=== PATIENT | male | born 1955 | race Caucasian/White ===

== ENCOUNTER 2017-01-13 07:45 | Day surgery (SDC) | payer BC ==
[2017-01-10 07:26] LABS: HEMOGLOBIN 15.1 g/dL (13.6-17.8)
[2017-01-10 07:42] LABS: A/G RATIO 1.4 (0.7-1.9); ALKALINE PHOSPHATASE 44 U/L (45-117); BUN (BLOOD UREA NITROGEN) 17 MG/DL (6-23); CALCIUM, SERUM 8.9 MG/DL (8.5-10.4); CHLORIDE, SERUM 110 MMOL/L (96-112); CO2 (CARBON DIOXIDE) 27 MMOL/L (24-34); CREATININE 1.38 MG/DL (0.70-1.30); GFR AFRICAN AMERICAN 63 ML/MIN (>=60); GFR NON AFRICAN AMERICAN 54 ML/MIN (>=60); GLOBULIN 2.9 G/DL (2.5-4.1); GLUCOSE, SERUM 94 MG/DL (60-99); POTASSIUM, SERUM 4.3 MMOL/L (3.5-5.3); SGOT(AST) 19 U/L (5-40); SGPT(ALT) 30 U/L (5-65); SODIUM, SERUM 145 MMOL/L (135-148); TOTAL BILIRUBIN 0.3 MG/DL (0-1.2); TOTAL PROTEIN 6.9 G/DL (6.0-8.5)
--- NOTE | ~2017-01-13 | OP ---
Record Of Operation [facility] [address] [place]. [address] NAME: LING BROWN : 51 STATUS : REG [facility] – [place] PAT#: [id number] AGE: 61 ADM/REG DATE : 01/13/17 MR#: [id number] REPORT SERV DATE: 01/13/17 DICTATED BY: CRUZ SILVA DATE: 01/13/17 REPORT STATUS : Draft TRANSCRIBED BY: MODL DATE: 01/13/17 DATE OF PROCEDURE: 01/13/2017 PREOPERATIVE DIAGNOSIS: Incarcerated umbilical hernia. POSTOPERATIVE DIAGNOSIS: Incarcerated umbilical hernia. PROCEDURE: Reduction and mesh patch repair of incarcerated umbilical hernia. SURGEON: Cruz Silva M.D. DESCRIPTION OF OPERATIVE PROCEDURE: The patient was brought to the operating suite, placed in supine position, underwent satisfactory general endotracheal anesthesia without incident. The skin of the abdomen was scrubbed, prepped, and draped in usual sterile fashion. 0.5% Marcaine with epinephrine was utilized as supplemental local anesthesia. Initially, a curvilinear infraumbilical incision was performed dissecting through the skin and subcutaneous tissue. The umbilical skin was elevated off the incarcerated hernia sac which consisted of the mesothelial membrane as well as a preperitoneal fat, this was excised leaving about a 1 cm defect. A PVPM bicomponent mesh patch was chosen. It was placed in local anesthesia, rolled up, and placed into the peritoneal cavity, this allowed to expand the midline fascia. Three separately placed sutures of 0 Ethibond in a "[id number]" interrupted vertical mattress fashion were utilized incorporating the two suturing tails of the mesh which were trimmed, these were tied down, and then the subcutaneous tissue was closed with interrupted 3-0 Vicryl, and redundant thinned out umbilical skin was trimmed and closed with running subcuticular stitch 4-0 Vicryl. Dermabond and skin adhesive were placed. The patient tolerated the procedure well. He was returned to PACU in stable condition. At the termination of the procedure sponge, needle, lap, and instrument counts were correct x3. ESTIMATED BLOOD LOSS: Negligible. WR/COTYL Cruz Silva M.D. / [id number] CC: Cruz Silva M.D. Record Of Operation [address] [address] NAME: LING BROWN : 51 STATUS : REG [facility] – [place] PAT#: [id number] AGE: 61 ADM/REG DATE : 01/13/17 MR#: [id number] REPORT SERV DATE: 01/13/17 DICTATED BY: CRUZ SILVA DATE: 01/13/17 REPORT STATUS : Draft TRANSCRIBED BY: SHORTY DATE: 01/13/17 Apollo Guevara M.D.
[~2017-01-13 07:45] MED LIST: BABY ASPIRIN
== END 2017-01-13 23:59 | disposition home or self-care (01) ==
LOC: MSC 07:45
PROVIDERS: Specialist
PROC: 0WUF0JZ Supplement Abdominal Wall with Synthetic Substitute, Open Approach (ICD-10-PCS; principal; 2017-01-13 09:15)
DX: K42.0 Umbilical hernia with obstruction, without gangrene (principal); E78.00 Pure hypercholesterolemia, unspecified; Z88.0 Allergy status to penicillin; Z98.890 Other specified postprocedural states
CPT/HCPCS: 80053; 85014; 85018; 93005; A9270-GY; C1781; J0690; J2250; J2405; J3010